=== PATIENT | male | born 2000 | race Caucasian/White ===

== ENCOUNTER 2024-11-14 10:39 | Emergency (ER) | payer BC, SELFPAY ==
[2024-11-14 10:39] VITALS: BP 140/92; PULSE 74; RESP 16; TEMP 36.9; O2SAT 97
--- NOTE | 2024-11-14 10:47 | ED_ITS ---
HPI - Skin/Abscess/Foreign Bdy General Chief complaint: Skin/Abscess/Foreign Body Stated complaint: tick bite Time Seen by Provider: 11/14/24 10:46 Source: patient Mode of arrival: ambulatory Limitations: no limitations History of Present Illness HPI narrative: Patient is a 24-year-old male with a right shoulder tick bite 1 week ago. He was able to remove the whole tick at that time. Further he has a rash on the right shoulder which does have a circular design with a central clearing. No other complaints. MD complaint: rash and discoloration Onset (ago): week(s) ( One) Location: chest ( right shoulder) Severity: mild Severity scale (1-10): 2 Quality: dull Pain Consistency: intermittent Relieving factors: none Exacerbating factors: none Context: other ( patient was outside and got a tick on the right shoulder and he removed it in total; a few days later there is a rash on the right shoulder such as a target lesion appearance) Associated symptoms: denies other symptoms Treatments prior to arrival: none Related Data Allergies Allergy/AdvReac Type Severity Reaction Status Date / Time No Known Allergies Allergy Unverified 11/14/24 10:52 Review of Systems Review of Systems: All systems reviewed & are unremarkable except as noted in HPI and below Constitutional: Constitutional: Reports no additional constitutional complaints Eyes: Eyes: Reports no additional eye complaints ENT: Reports system reviewed and no additional complaints, except as documented Cardiovascular: Cardiovascular: Reports no additional cardiovascular complaints Respiratory: Respiratory: Reports no additional respiratory complaints Gastrointestinal: Gastrointestinal: Reports no additional gastrointestinal complaints Genitourinary: Genitourinary: Reports no additional male genitourinary complaints Integumentary/Breasts: Skin/Breast: Reports system reviewed and no additional complaints, except as docu Psychiatric: Psychiatric: Reports no additional psychiatric complaints Endocrine: Endocrine: Reports no additional endocrine complaints Hematologic/Lymphatic: Hematologic/Lymphatic: Reports no additional hematologic/lymphatic complaints Exam Const: General: healthy appearing Nutritional Appearance: well nourished Orientation/consciousness: patient oriented x3 HENMT: Head: normal to inspection Ears: external ears normal Face/Nose/Sinus: Normal external nose present Eyes: Conjunctivae: conjunctivae normal Pupils: Equal, round and reactive pupils present EOM: EOMs intact bilaterally Neck: Neck: normal visual inspection Chest: Chest palpation & inspection: normal inspection of the chest Resp: Effort & Inspection: normal respiratory effort and not labored Auscultation: clear to auscultation bilaterally and no crackles Cardio: Rate: regular rate Rhythm: regular rhythm Heart sounds: Murmur heart sound present GI: Inspection: non-distended GI Palp: Yes Soft to palpation and No Tenderness to palpation present (GI) Auscultation: normal bowel sounds : General: Yes bladder normal to palpation Back/Spine/Pelvis: Back: no CVA tenderness Skin: General skin exam: normal color Rashes: rash noted Wounds: no wounds Other: right shoulder circular target lesion with central clearing and erythema circumferentially around the area Neuro: General: patient oriented x3, moves all extremities and no meningeal signs Extrem: General: normal to inspection, no clubbing, cyanosis or edema and no pedal edema Psych: Mental Status: mental status grossly normal Affect: normal affect Attitude: cooperative Course Vital Signs Vital signs: Vital Signs Temperature 36.9 C 11/14/24 10:39 Pulse Rate 74 11/14/24 10:39 Respiratory Rate 16 11/14/24 10:39 Blood Pressure 140/92 H 11/14/24 10:39 Pulse Oximetry 97 11/14/24 10:39 Oxygen Delivery Room Air 11/14/24 10:39 Temperature 36.9 C 11/14/24 10:39 Pulse Rate 74 11/14/24 10:39 Respiratory Rate 16 11/14/24 10:39 Blood Pressure 140/92 H 11/14/24 10:39 Pulse Oximetry 97 11/14/24 10:39 Oxygen Delivery Room Air 11/14/24 10:39 MDM - Skin/Abscess/Foreign Bdy MDM Narrative Medical decision making narrative: patient is a 24-year-old male with a right shoulder rash that possibly correlates with Lyme disease tick. He removed the tick a week ago. Doxycycline 100 mg b.i.d. for 10 days. Discharge Plan Discharge Clinical Impression: Tick bite Qualifiers: Encounter type: initial encounter Site of tick bite: shoulder Laterality: right Qualified Code(s): S40.261A - Insect bite (nonvenomous) of right shoulder, initial encounter Patient Disposition: Home Condition: Stable Instructions: Antibiotic Form, Tick Bite (ED) Patient Language: Panamanian Prescriptions: New doxycycline monohydrate 100 mg capsule 100 mg PO BID 10 Days Qty: 20 0RF Follow-up/Referrals: Albert Cordon MD [Primary Care Provider] - Time of Disposition: 10:52
--- OUTSIDE RECORDS SUMMARY | 2024-11-14 11:10 | XMS_ITS ---
Author Organization Unknown ENCOUNTERS Encounter Performer Location Date Diagnosis Diagnosis [place] [address] [id number] [place] [address] [id number] [facility] *Note: Encounters from your own facility or health system may be excluded. Allergies, Adverse Reactions, Alerts Allergen Type Severity Identification Date Medications Name Date Quantity Days Supplied GPI Number
== END 2024-11-14 10:58 | disposition home or self-care (01) ==
LOC: CHSED 11:08
PROVIDERS: Emergency Provider Emergency Medicine; PCP Internal Medicine
DX: S40.261A Insect bite (nonvenomous) of right shoulder, initial encounter (principal); W57.XXXA Bitten or stung by nonvenomous insect and other nonvenomous arthropods, initial encounter
CPT/HCPCS: 99283